=== PATIENT | female | born 1990 | race Two or more races ===

== ENCOUNTER 2018-04-19 19:59 | Emergency (ER) | payer MEDICAID, OTHER, SELFPAY ==
[~2018-04-19] VITALS: Ht 162.6 cm; Wt 83.6 kg
[2018-04-19] MEDS ORDERED: FAMOTIDINE 20 MG TABLET ONE (20:24)
[2018-04-19] MEDS ORDERED: DIPHENHYDRAMINE 25 MG CAPSULE ONE (20:24)
[2018-04-19] MEDS ORDERED: DIPHENHYDRAMINE 25 MG CAPSULE PO ONE (20:30)
[2018-04-19] MEDS ORDERED: FAMOTIDINE 20 MG TABLET PO ONE (20:30)
--- NOTE | 2018-04-19 20:33 | NUR ---
pt presented with c/o left eye swell;ing, itching x 1 hour after eating bread at [facility], pt stated " its an allergic reaction". monitors applied, call light within reach, medicated per jun.
[2018-04-19 20:36] VITALS: BP 119/73
== END 2018-04-19 21:08 | disposition home or self-care (01) ==
LOC: ED 21:02
DX: T78.1XXA Other adverse food reactions, not elsewhere classified, initial encounter (principal); T78.49XA Other allergy, initial encounter; X58.XXXA Exposure to other specified factors, initial encounter
CPT/HCPCS: 99284; J7512; Q0163